=== PATIENT | male | born 1950 | race Caucasian/White ===

== ENCOUNTER → 2019-02-02 | Outpatient (CLI) | payer OTHER, MEDICARE ==
[~2019-02-02] MED LIST: ASPIR 8181 MG PO; BYSTOLIC 5 MG5 M1 PO; CALCITRIOL0.25 MCG PO; CEFADROXIL 500500 M1 PO; CENTRUM SILVER1 EAC2 PO; FISH OIL 1,001000 M2 PO; HYDROCODONE-APA1 TA1 PO; LEVOTHYROXIN0.125 M1 PO; LISINOPRIL-HCT1 EAC1 PO; LISINOPRIL10 MG PO; PRAVACHOL40 MG PO; TUMS PO
== END ==
LOC: RAD 12:21
DX: J44.9 Chronic obstructive pulmonary disease, unspecified (principal); M47.814 Spondylosis without myelopathy or radiculopathy, thoracic region

== ENCOUNTER → 2019-12-14 | Outpatient (CLI) | payer OTHER, MEDICARE | LOC: SJCVC 10:00 | PROVIDERS: ATTEND Internal Medicine Cardiovascular Disease | DX: R94.31 Abnormal electrocardiogram [ECG] [EKG] (principal); I45.10 Unspecified right bundle-branch block; I11.0 Hypertensive heart disease with heart failure; I50.32 Chronic diastolic (congestive) heart failure; I65.23 Occlusion and stenosis of bilateral carotid arteries; Z95.2 Presence of prosthetic heart valve; E78.00 Pure hypercholesterolemia, unspecified; I35.0 Nonrheumatic aortic (valve) stenosis; Z79.899 Other long term (current) drug therapy; Z87.891 Personal history of nicotine dependence; Z82.49 Family history of ischemic heart disease and other diseases of the circulatory system ==

== ENCOUNTER → 2020-12-06 | Outpatient (CLI) | payer OTHER, MEDICARE | LOC: SJCVCIMAG 09-09 06:56 | PROVIDERS: ATTEND Internal Medicine Cardiovascular Disease | DX: I08.1 Rheumatic disorders of both mitral and tricuspid valves (principal); I11.9 Hypertensive heart disease without heart failure; I65.23 Occlusion and stenosis of bilateral carotid arteries; E78.00 Pure hypercholesterolemia, unspecified; I25.10 Atherosclerotic heart disease of native coronary artery without angina pectoris; J44.9 Chronic obstructive pulmonary disease, unspecified; J18.9 Pneumonia, unspecified organism; D64.9 Anemia, unspecified; N40.0 Benign prostatic hyperplasia without lower urinary tract symptoms; E66.9 Obesity, unspecified; Z68.34 Body mass index [BMI] 34.0-34.9, adult; Z95.2 Presence of prosthetic heart valve; Z87.891 Personal history of nicotine dependence; Z72.89 Other problems related to lifestyle; Z79.82 Long term (current) use of aspirin; Z79.899 Other long term (current) drug therapy; Z91.048 Other nonmedicinal substance allergy status ==

== ENCOUNTER → 2021-04-15 | Outpatient (CLI) | payer OTHER, MEDICARE | LOC: RAD 13:19 | PROVIDERS: ATTEND Internal Medicine Pulmonary Disease | DX: J44.9 Chronic obstructive pulmonary disease, unspecified (principal); R06.02 Shortness of breath ==

== ENCOUNTER → 2021-05-05 | Outpatient (CLI) | payer OTHER, MEDICARE | LOC: SJCVCIMAG 08:10 | PROVIDERS: ATTEND Internal Medicine Cardiovascular Disease | DX: I35.0 Nonrheumatic aortic (valve) stenosis (principal); Z95.4 Presence of other heart-valve replacement ==